=== PATIENT | female | born 1990 | race Caucasian/White ===

== ENCOUNTER 2019-06-24 15:43 | Outpatient (CLI) | payer OTHER, MEDICAID ==
[2019-06-24 17:54] LABS: ADD UMIC YES; UR ASCORBIC ACID NEGATIVE (NEGATIVE); UR BILIRUBIN (Dip) NEGATIVE (NEGATIVE); UR BLOOD (Dip) NEGATIVE (NEGATIVE); UR CLARITY CLEAR (CLEAR); UR COLOR YELLOW (YELLOW); UR GLUCOSE (Dip) NEGATIVE (NEGATIVE); UR KETONES (Dip) NEGATIVE (NEGATIVE); UR LEUKOCYTE ESTERASE (Dip) NEGATIVE Leu/ul (NEGATIVE); UR MUCUS FEW /HPF (NONE SEEN); UR NITRITE (Dip) NEGATIVE (NEGATIVE); UR RBC 1 /HPF (0-5); UR SPECIFIC GRAVITY (Dip) 1.023 (1.003-1.030); UR SQUAMOUS EPITHELIAL CELL FEW /HPF (FEW); UR TOTAL PROTEIN (Dip) 1+ mg/dl (NEGATIVE); UR UROBILINOGEN (Dip) 1+ mg/dL (NEGATIVE); UR WBC 1 /HPF (0-5)
== END 2019-06-24 19:00 | disposition home or self-care (01) ==
LOC: OBT 15:43 → L-D 15:45 → OBT 19:00
DX: O60.03 Preterm labor without delivery, third trimester (principal); Z3A.36 36 weeks gestation of pregnancy
CPT/HCPCS: 76815; 76818; 81001; 87086

== ENCOUNTER 2019-07-08 18:05 | Outpatient (CLI) | payer OTHER ==
[2019-07-08 21:07] LABS: ADD UMIC NO; UR ASCORBIC ACID NEGATIVE (NEGATIVE); UR BILIRUBIN (Dip) NEGATIVE (NEGATIVE); UR BLOOD (Dip) NEGATIVE (NEGATIVE); UR CLARITY CLEAR (CLEAR); UR COLOR STRAW (YELLOW); UR GLUCOSE (Dip) NEGATIVE (NEGATIVE); UR KETONES (Dip) NEGATIVE (NEGATIVE); UR LEUKOCYTE ESTERASE (Dip) NEGATIVE Leu/ul (NEGATIVE); UR NITRITE (Dip) NEGATIVE (NEGATIVE); UR SPECIFIC GRAVITY (Dip) 1.003 (1.003-1.030); UR TOTAL PROTEIN (Dip) NEGATIVE (NEGATIVE); UR UROBILINOGEN (Dip) NEGATIVE (NEGATIVE)
[2019-07-08] MEDS: ACETAMINOPHEN 500 MG TAB PO (21:17)
[2019-07-08 21:26] LABS: AMPHETAMINE/METHAMPHETAMINE Negative (NEGATIVE); BARBITURATES Negative (NEGATIVE); BENZODIAZEPINES Negative (NEGATIVE); CANNABINOIDS Negative (NEGATIVE); COCAINE Negative (NEGATIVE); OPIATES Negative (NEGATIVE)
== END 2019-07-08 23:15 | disposition home or self-care (01) ==
LOC: OBT 18:05 → L-D 18:06 → OBT 23:15
DX: O26.893 Other specified pregnancy related conditions, third trimester (principal); Z3A.38 38 weeks gestation of pregnancy; S39.91XA Unspecified injury of abdomen, initial encounter; V43.62XA Car passenger injured in collision with other type car in traffic accident, initial encounter; Y92.410 Unspecified street and highway as the place of occurrence of the external cause
CPT/HCPCS: 76818; 80307; 81003

== ENCOUNTER 2019-07-16 04:39 | Inpatient (IN) | payer OTHER ==
[2019-07-16] MEDS ORDERED: CARBOPROST 250 MCG INJ IM (09:30)
[2019-07-16] MEDS ORDERED: BUTORPHANOL 2 MG INJ IV ×2 (09:30)
[2019-07-16] MEDS ORDERED: MISOPROSTOL 200 MCG TAB PR (09:30)
[2019-07-16] MEDS ORDERED: METHYLERGONOVINE 0.2 MG INJ IM (09:30)
[2019-07-16] MEDS ORDERED: OXYTOCIN 30 UNITS/LR 500 ML IV (09:30)
[2019-07-16] MEDS ORDERED: LIDOCAINE 1% (MPF) 30 ML INJ INJ (09:30)
[2019-07-16 10:15] LABS: ADD MAN DIFF? NO
[2019-07-16 10:22] LABS: BASOPHILS % 0.4 % (0.0-2.0); EOSINOPHILS # 0.2 10^3/ul (0.0-0.5); EOSINOPHILS % 1.5 % (0.0-7.0); HEMATOCRIT 32.3 % (37.0-47.0); HEMOGLOBIN 10.1 g/dl (12.0-16.0); LYMPHOCYTES % 20.3 % (15.0-51.0); MEAN CORPUSCULAR HEMOGLOBIN 25.9 pg (29.0-33.0); MEAN CORPUSCULAR HGB CONC 31.3 g/dl (32.0-37.0); MEAN CORPUSCULAR VOLUME 82.8 fl (82.0-101.0); MEAN PLATELET VOLUME 11.9 fl (7.4-10.4); MONOCYTES % 9.6 % (0.0-11.0); NEUTROPHIL # 6.7 10^3/ul (1.6-7.5); NEUTROPHILS % 67.1 % (39.0-77.0); PLATELET COUNT 190 10^3/UL (140-415); RED CELL DISTRIBUTION WIDTH 14.9 % (11.5-14.5)
[2019-07-16 10:37] LABS: INR 0.85; PARTIAL THROMBOPLASTIN TIME 25.4 Sec (23.0-35.0); PROTIME 11.7 Sec (11.9-14.9); PT RATIO 0.9
[2019-07-16] MEDS: LACTATED RINGER'S 1,000 ML IV ×2 (11:18→19:35)
[2019-07-16] MEDS: OXYTOCIN 30 UNITS/LR 500 ML IV (11:19)
[2019-07-16 12:20] LABS: HEPATITIS B SURFACE ANTIGEN NEGATIVE (NEGATIVE)
[2019-07-16] MEDS: AMPICILLIN 2 GM/NS (PMX) 100 ML IV (12:57)
[2019-07-16 13:23] LABS: AMPHETAMINE/METHAMPHETAMINE Negative (NEGATIVE); BARBITURATES Negative (NEGATIVE); BENZODIAZEPINES Negative (NEGATIVE); CANNABINOIDS Negative (NEGATIVE); COCAINE Negative (NEGATIVE); OPIATES Negative (NEGATIVE)
[2019-07-16] MEDS: MINERAL OIL LIGHT 10 ML VIAL TOP (15:00)
[2019-07-16 15:33] LABS: RPR TITER 1:16 (0)
[2019-07-16 15:33] LABS: RAPID PLASMA REAGIN REACTIVE (NR)
[2019-07-16] MEDS: AMPICILLIN 1 GM/NS (PMX) 50 ML IV ×2 (16:17→20:00)
[2019-07-17] MEDS: AMPICILLIN 1 GM/NS (PMX) 50 ML IV ×4 (00:06→14:05)
[2019-07-17] MEDS: LACTATED RINGER'S 1,000 ML IV ×3 (04:05→06:43)
[2019-07-17] MEDS ORDERED: FENTAnyl 2MCG/ML-ROPIV 0.2% 100 ML (05:31)
[2019-07-17] MEDS ORDERED: ONDANSETRON 4 MG INJ (05:40)
[2019-07-17] MEDS: ONDANSETRON 4 MG INJ IV (05:45)
[2019-07-17] MEDS ORDERED: NALOXONE (0.4 MG/ML) INJ IV (06:00)
[2019-07-17] MEDS: FENTAnyl 2MCG/ML-ROPIV 0.2% 100 ML BAG EPI (14:06)
[2019-07-17] MEDS: OXYTOCIN 30 UNITS/LR 500 ML IV ×3 (15:40→19:11)
[2019-07-17] MEDS ORDERED: METHYLERGONOVINE 0.2 MG INJ IM (16:00)
[2019-07-17] MEDS ORDERED: LANOLIN HPA 1 PKT TOP (16:00)
[2019-07-17] MEDS ORDERED: SENNA/DOCUSATE NA (8.6MG/50MG) TAB PO (16:00)
[2019-07-17] MEDS ORDERED: ACETAMINOPHEN 325 MG TAB PO ×2 (16:00)
[2019-07-17] MEDS ORDERED: DIBUCAINE 1% 30 GM OINT TOP (16:00)
[2019-07-17] MEDS ORDERED: ONDANSETRON 4 MG INJ IV (16:00)
[2019-07-17] MEDS ORDERED: CARBOPROST 250 MCG INJ IM (16:00)
[2019-07-17] MEDS ORDERED: OXYTOCIN 30 UNITS/LR 500 ML IV (16:00)
[2019-07-17] MEDS ORDERED: MAGNESIUM HYDROXIDE 30ML CUP PO (16:00)
[2019-07-17] MEDS ORDERED: MISOPROSTOL 200 MCG TAB PR (16:00)
[2019-07-17 16:02] LABS: ALANINE AMINOTRANSFERASE 18 IU/L (13-69); ALBUMIN 2.9 g/dl (3.3-4.9); ALKALINE PHOSPHATASE 179 IU/L (42-121); ANION GAP 5 (5-13); ASPARTATE AMINO TRANSFERASE 24 IU/L (15-46); BLOOD UREA NITROGEN 5 mg/dl (7-20); CALCIUM 8.1 mg/dl (8.4-10.2); CARBON DIOXIDE 21 mmol/L (21-31); CHLORIDE 108 mmol/L (97-110); CREATININE 0.79 mg/dl (0.44-1.00); Estimated GFR > 60 mL/min (>60); GLUCOSE 87 mg/dl (70-220); POTASSIUM 3.5 mmol/L (3.5-5.1); SODIUM 134 mmol/L (135-144); TOTAL PROTEIN 6.1 g/dl (6.1-8.1)
[2019-07-17 16:12] LABS: HIV 1&2 ANTIBODY NEGATIVE (NEGATIVE)
[2019-07-17 16:12] LABS: HEPATITIS C VIRAL ANTIBODY NEGATIVE (NEGATIVE)
[2019-07-17] MEDS: IBUPROFEN 600 MG TAB PO (17:19)
[2019-07-17] MEDS: PENICILLIN G K 5,000,000 UNITS in DEXTROSE 5% 100 ML IVPB (18:07)
[2019-07-17] MEDS: BENZOCAINE 20% 56 ML SPRAY TOP (18:25)
[2019-07-17] MEDS: WITCH HAZEL/GLYCERIN PAD PR (18:25)
[2019-07-17] MEDS: LACTATED RINGER'S 1,000 ML IV* (19:11)
[2019-07-17] MEDS: PENICILLIN G K 2,500,000 UNITS in DEXTROSE 5% 50 ML IVPB (22:01)
[2019-07-18] MEDS: PENICILLIN G K 2,500,000 UNITS in DEXTROSE 5% 50 ML IVPB ×6 (01:33→20:15)
[2019-07-18] MEDS: IBUPROFEN 600 MG TAB PO ×2 (04:59→12:12)
[2019-07-18] MEDS: LACTATED RINGER'S 1,000 ML IV* ×3 (05:02→15:49)
[2019-07-18 08:52] LABS: ADD MAN DIFF? NO
[2019-07-18 08:55] LABS: WHITE BLOOD COUNT 15.2 10^3/ul (4.8-10.8)
[2019-07-18 08:55] LABS: BASOPHILS % 0.3 % (0.0-2.0); EOSINOPHILS # 0.2 10^3/ul (0.0-0.5); HEMATOCRIT 27.3 % (37.0-47.0); HEMOGLOBIN 8.5 g/dl (12.0-16.0); LYMPHOCYTES # 2.4 10^3/ul (0.8-2.9); MEAN CORPUSCULAR HEMOGLOBIN 25.8 pg (29.0-33.0); MEAN CORPUSCULAR HGB CONC 31.1 g/dl (32.0-37.0); MEAN PLATELET VOLUME 11.6 fl (7.4-10.4); MONOCYTE # 1.5 10^3/ul (0.3-0.9); MONOCYTES % 9.6 % (0.0-11.0); PLATELET COUNT 148 10^3/UL (140-415); RED BLOOD COUNT 3.29 10^6/ul (4.20-5.40); RED CELL DISTRIBUTION WIDTH 15.3 % (11.5-14.5)
[2019-07-18] MEDS: FERROUS SULFATE (EC) 325 MG TAB PO (20:15)
[2019-07-18] MEDS: ASCORBIC ACID 500 MG TAB PO (20:15)
[2019-07-19] MEDS: IBUPROFEN 600 MG TAB PO ×2 (02:22→20:32)
[2019-07-19] MEDS: PENICILLIN G K 2,500,000 UNITS in DEXTROSE 5% 50 ML IVPB ×5 (05:04→17:49)
[2019-07-19] MEDS: LACTATED RINGER'S 1,000 ML IV* (05:44)
[2019-07-19] MEDS: ASCORBIC ACID 500 MG TAB PO (09:04)
[2019-07-19] MEDS: FERROUS SULFATE (EC) 325 MG TAB PO ×2 (09:04→10:55)
[2019-07-22 17:52] LABS: FLUORESCENT TREPONEMAL AB REACTIVE (NON-REACTIVE)
== END 2019-07-19 21:00 | disposition home or self-care (01) | DRG 806 ==
LOC: OBT 04:39 → PP1 07-17 17:38 → L-D 04:39 → OBT 09:15 → L-D 09:15
PROVIDERS: Obstetrics & Gynecology
PROC: 10E0XZZ Delivery of Products of Conception, External Approach (ICD-10-PCS; principal; 2019-07-17)
DX: O99.02 Anemia complicating childbirth (principal); D62 Acute posthemorrhagic anemia; Z37.0 Single live birth; Z3A.39 39 weeks gestation of pregnancy
CPT/HCPCS: 62322; 76818; 80053; 80307; 85025; 85610; 85730; 86592; 86703; 86708; 86803; 86850; 86900; 86901; 87340; 88307; 99464